=== PATIENT | male | born 1985 | race Caucasian/White ===

== ENCOUNTER 2019-11-17 17:27 | Emergency (ER) | payer MEDICAID ==
--- NOTE | 2019-11-17 17:32 | EDM.PDOC ---
ED HPI GENERAL MEDICAL PROBLEM - General Chief Complaint: ENT Problem Stated Complaint: SINUS INFECTION Time Seen by Provider: 11/17/19 17:29 Source of Information: Reports: Patient History Limitations: Reports: No Limitations - History of Present Illness INITIAL COMMENTS - FREE TEXT/NARRATIVE: 34-year-old male with no past medical history presents with sinus congestion for 1 day. Denies fever, headache, chills, cough, sore throat. He tried taking ibuprofen, Robitussin, Mucinex, Tylenol with no relief. ROS: A 10-point review of systems, other than pertinent positives and negatives as stated per HPI, is otherwise negative PHYSICAL EXAM General: AOx4, GCS = 15, No distress HEENT: dry mucous membrane, no erythema posterior oropharynx, no tenderness to maxillary sinus bilaterally or frontal sinus. Neck: supple, no meningismus, no Kernig or Brudzinski Cardiac: S1S2 RRR Respiratory: CTAB, no crackles or rales, no wheezing Abdomen: Soft, nontender, no rebound or guarding, nondistended, no pulsatile mass. Back: nontender Musculoskeletal: NVI distally, no deformity Neuro: No focal deficits, CN 2 - 12 WNL. Onset: Today - Related Data Home Meds: Home Meds Naproxen [Naprosyn] 500 mg PO Q12HR #10 tab 11/17/19 [Rx] Sod Chlor,Bicarb/Squeez Bottle [Catarina Saline Nasal Rinse Kit] 1 each NS TID #1 pack.w.dev 11/17/19 [Rx] ED ROS ENT - Review of Systems Review Of Systems: Comprehensive ROS is negative, except as noted in HPI. ED EXAM, ENT - Physical Exam Exam: See Below General Appearance: Alert, WD/WN Course - Re-Assessments/Exams Free Text/Narrative Re-Assessment/Exam: 11/17/19 17:30 After treatments and a prolonged observation period in the ER, the patient improved clinically and is stable for discharge. I performed a repeat examination and the patient has not demonstrated any new abnormal findings. Patient exhibits normal vital signs and has exhibited a normal gait. I advised the patient to return to the ER for reevaluation if symptoms worsened, and to follow up with their PCP ( ) within 2-3 days. MEDICAL DECISION MAKING: I reviewed the patients past medical records. I discussed the case with the patient. My differential diagnosis included: Sinusitis, URI, nasal congestion. Pt is well appearing, symptoms are consistent with viral etiology for sinusitis amendable for symptomatic treatment. I do not suspect bacterial etiology, his symptoms are of 1 day duration and he does not warrant antibiotics at this time.. He has stable vitals. i discussed with the patient the need for f/u with PCP in 1 week. I instructed him to use nasal saline spray, to return for fever, worsening facial pain, persistent symptoms over 10 days. Departure - Departure Time of Disposition: 17:37 Disposition: Home, Self-Care 01 Condition: Good Clinical Impression: Sinusitis - Discharge Information *PRESCRIPTION DRUG MONITORING PROGRAM REVIEWED*: Not Applicable *COPY OF PRESCRIPTION DRUG MONITORING REPORT IN PATIENT DORINDA: Not Applicable Prescriptions: Sod Chlor,Bicarb/Squeez Bottle [Catarina Saline Nasal Rinse Kit] 1 each NS TID #1 pack.w.dev Naproxen [Naprosyn] 500 mg PO Q12HR #10 tab Instructions: Sinusitis, Adult, [id number], How to Perform a Sinus Rinse Forms: ED Department Discharge Additional Instructions: The following information is given to patients seen in the emergency department who are being discharged to home. This information is to outline your options for follow-up care. We provide all patients seen in our emergency department with a follow-up referral. The need for follow-up, as well as the timing and circumstances, are variable depending upon the specifics of your emergency department visit. If you don't have a primary care physician on staff, we will provide you with a referral. We always advise you to contact your personal physician following an emergency department visit to inform them of the circumstance of the visit and for follow-up with them and/or the need for any referrals to a consulting specialist. The emergency department will also refer you to a specialist when appropriate. This referral assures that you have the opportunity for follow-up care with a specialist. All of these measure are taken in an effort to provide you with optimal care, which includes your follow-up. Under all circumstances we always encourage you to contact your private physician who remains a resource for coordinating your care. When calling for follow-up care, please make the office aware that this follow-up is from your recent emergency room visit. If for any reason you are refused follow-up, please contact the [facility] Emergency Department at and asked to speak to the emergency department charge nurse. If you do not have a primary care doctor, please follow up with the clinics below within 3-5 days. [facility] [address] [place] [id number] [facility] [address] [place] [id number]
== END 2019-11-17 17:50 | disposition home or self-care (01) ==
LOC: MW.ED 17:27
DX: J32.9 Chronic sinusitis, unspecified (principal)
CPT/HCPCS: 99283

== ENCOUNTER 2021-07-14 09:22 | Emergency (ER) | payer MEDICAID | END 2021-07-14 11:44 | disposition home or self-care (01) | LOC: MW.ED 09:22 | DX: J01.00 Acute maxillary sinusitis, unspecified (principal) | CPT/HCPCS: 99283 ==

== ENCOUNTER 2021-09-18 08:31 | Emergency (ER) | payer MEDICAID | END 2021-09-18 09:00 | disposition home or self-care (01) | LOC: MW.ED 08:31 | DX: J01.90 Acute sinusitis, unspecified (principal); Z86.16 Personal history of COVID-19 | CPT/HCPCS: 99283 ==

== ENCOUNTER 2022-01-13 17:32 | Emergency (ER) | payer BC, MEDICAID | END 2022-01-13 17:44 | disposition home or self-care (01) | LOC: MW.ED 17:32 | DX: J01.91 Acute recurrent sinusitis, unspecified (principal); Z90.49 Acquired absence of other specified parts of digestive tract; Z86.16 Personal history of COVID-19; Z79.899 Other long term (current) drug therapy | CPT/HCPCS: 99282; 99283 ==

== ENCOUNTER 2022-12-19 11:03 | Emergency (ER) | payer OTHER, MEDICAID ==
[2022-12-19] MEDS ORDERED: Amoxicillin/Clavulanate K 875-125 MG Tab PO ONE (11:21)
== END 2022-12-19 11:50 | disposition home or self-care (01) ==
LOC: MW.ED 11:03
DX: H66.001 Acute suppurative otitis media without spontaneous rupture of ear drum, right ear (principal); Z86.16 Personal history of COVID-19
CPT/HCPCS: 99282; A9270; 99283